=== PATIENT | male | born 1950 | race Caucasian/White ===

== ENCOUNTER 2023-06-04 20:31 | Emergency (ER) | payer MEDICARE, OTHER ==
[2023-06-04] MEDS: Orphenadrine 60 MG/2 ML Inj IM ONE (21:10)
[2023-06-04] MEDS: Diazepam 5 MG Tab PO ONE (22:30)
[2023-06-05] MEDS ORDERED: tiZANidine 4 MG Tab PO SCH (21:00)
== END 2023-06-04 22:30 | disposition home or self-care (01) ==
LOC: JD.ED 20:31
DX: M62.830 Muscle spasm of back (principal); Z79.899 Other long term (current) drug therapy
CPT/HCPCS: 96372; 99284; A9270; J2360; 99282

== ENCOUNTER 2025-01-12 13:09 | Day surgery (SDC) | payer MEDICARE, OTHER ==
[2025-01-12] MEDS: Lidocaine 1% PF 2 ML SDV INJECT SCH (07:29)
[2025-01-12] MEDS: Tetracaine HCl/PF 0.5% 4 ML Bottle EYEBOTH SCH (07:29)
[2025-01-12] MEDS: Pilocarpine 4% Ophth Soln 15 ML Bot EYELF SCH (07:29)
[2025-01-12] MEDS: Polymyxin B/Trimethoprim 10 ML Bottle EYELF SCH (07:29)
[2025-01-12] MEDS: Cefuroxime 10 MG/ML SYRINGE EYELF SCH (07:29)
[2025-01-12] MEDS: Tropicamide 1% Ophth Soln 3 ML Bottle EYELF SCH (13:40)
== END 2025-01-12 15:49 | disposition home or self-care (01) ==
LOC: JD.SDS 13:09
PROVIDERS: ATTEND Ophthalmology
DX: H25.813 Combined forms of age-related cataract, bilateral (principal); H02.834 Dermatochalasis of left upper eyelid; H02.831 Dermatochalasis of right upper eyelid; H11.823 Conjunctivochalasis, bilateral; H57.813 Brow ptosis, bilateral; Z79.899 Other long term (current) drug therapy
CPT/HCPCS: 66984; A9270; J0697; J3490

== ENCOUNTER 2025-02-16 11:46 | Day surgery (SDC) | payer MEDICARE, OTHER ==
[2025-02-16] MEDS: Pilocarpine 4% Ophth Soln 15 ML Bot EYERT SCH (07:33)
[2025-02-16] MEDS: Cefuroxime 10 MG/ML SYRINGE EYERT SCH (07:33)
[2025-02-16] MEDS: Lidocaine 1% PF 2 ML SDV INJECT SCH (07:33)
[2025-02-16] MEDS: Polymyxin B/Trimethoprim 10 ML Bottle EYERT SCH (07:34)
[2025-02-16] MEDS: Tetracaine HCl/PF 0.5% 4 ML Bottle EYEBOTH SCH (07:34)
[2025-02-16] MEDS: Tropicamide 1% Ophth Soln 3 ML Bottle EYERT SCH (12:12)
== END 2025-02-16 13:34 | disposition home or self-care (01) ==
LOC: JD.SDS 11:46
PROVIDERS: ATTEND Ophthalmology
DX: H25.811 Combined forms of age-related cataract, right eye (principal); H52.31 Anisometropia; Z96.1 Presence of intraocular lens; Z79.899 Other long term (current) drug therapy
CPT/HCPCS: A9270-GY; J0697; J3490

== ENCOUNTER 2025-03-21 10:11 | Emergency (ER) | payer MEDICARE, OTHER ==
[2025-03-21] MEDS ORDERED: Sodium Chloride 0.9% 10 ML Syringe FLUSH PRN (10:37)
[2025-03-21] MEDS: methylPREDNISolone Sodium Succinate 125 MG/2 ML SDV IVPUSH ONE (10:46)
[2025-03-21] MEDS: methylPREDNISolone Sodium Succinate 125 MG/2 ML SDV IM ONE (11:17)
== END 2025-03-21 13:10 | disposition home or self-care (01) ==
LOC: JD.ED 10:11
DX: M54.50 Low back pain, unspecified (principal); I10 Essential (primary) hypertension; I48.91 Unspecified atrial fibrillation; F17.200 Nicotine dependence, unspecified, uncomplicated; E78.00 Pure hypercholesterolemia, unspecified; Z79.899 Other long term (current) drug therapy; Z90.49 Acquired absence of other specified parts of digestive tract
CPT/HCPCS: 72100; 72148; 96374; 96375; 99284; A9270; J1171; J2919

== ENCOUNTER 2025-03-28 14:07 | Emergency (ER) | payer MEDICARE, OTHER | END 2025-03-28 16:00 | disposition left against medical advice (07) | LOC: JD.ED 14:07 | DX: Z53.21 Procedure and treatment not carried out due to patient leaving prior to being seen by health care provider (principal) ==

== ENCOUNTER 2025-03-29 13:45 | Emergency (ER) | payer MEDICARE, OTHER | END 2025-03-29 14:40 | disposition home or self-care (01) | LOC: JD.ED 13:45 | DX: M62.830 Muscle spasm of back (principal); I10 Essential (primary) hypertension; E78.00 Pure hypercholesterolemia, unspecified; Z79.899 Other long term (current) drug therapy; Z90.49 Acquired absence of other specified parts of digestive tract | CPT/HCPCS: 99283; A9270 ==